=== PATIENT | male | born 1990 | race Caucasian/White ===

== ENCOUNTER 2021-10-23 09:25 | Emergency (ER) | payer MEDICAID, OTHER ==
[~2021-10-23] VITALS: Ht 193 cm; Wt 68.0 kg
[2021-10-23 09:55] LABS: BASOPHILS % (AUTO) 1 % (0-10); EOSINOPHILS % (AUTO) 1 % (0-10); HEMATOCRIT 42 % (40-54); HEMOGLOBIN 14.7 g/dL (13.3-17.7); LYMPHOCYTES # (AUTO) 2.1 10^3/uL (1.0-4.0); LYMPHOCYTES % (AUTO) 38 % (12-44); MEAN CORPUSCULAR HEMOGLOBIN 33 pg (25-34); MEAN CORPUSCULAR HGB CONC 35 g/dL (32-36); MEAN CORPUSCULAR VOLUME 94 fL (80-99); MONOCYTES # (AUTO) 0.7 10^3/uL (0.0-1.0); MONOCYTES % (AUTO) 13 % (0-12); NEUTROPHILS # (AUTO) 2.7 10^3/uL (1.8-7.8); NEUTROPHILS % (AUTO) 48 % (42-75); PLATELET COUNT 190 10^3/uL (130-400); WHITE BLOOD COUNT 5.6 10^3/uL (4.3-11.0)
[2021-10-23 09:59] LABS: ALBUMIN 4.5 GM/DL (3.2-4.5)
[2021-10-23 10:00] LABS: POTASSIUM 4.2 MMOL/L (3.6-5.0)
[2021-10-23] MEDS ORDERED: LACTATED RINGERS 1,000 ML IV ONE (10:00)
[2021-10-23] MEDS ORDERED: ONDANSETRON 4 MG/2 ML (SDV) Z0FRAN IVP ONE (10:00)
[2021-10-23] MEDS ORDERED: fentaNYL INJ 100 MCG/2 ML AMP IVP ONE (10:00)
[2021-10-23 10:01] LABS: CALCIUM 9.3 MG/DL (8.5-10.1)
[2021-10-23 10:02] LABS: TOTAL PROTEIN 7.2 GM/DL (6.4-8.2)
[2021-10-23 10:04] LABS: BILIRUBIN,TOTAL 0.6 MG/DL (0.1-1.0)
[2021-10-23 10:05] LABS: CREATININE SERUM 1.11 MG/DL (0.60-1.30)
[2021-10-23] MEDS ORDERED: KETOROLAC 30 MG/ML VIAL IVP ONE (10:45)
[2021-10-23 11:27] LABS: BILIRUBIN,URINE NEGATIVE (NEGATIVE); CLARITY,URINE CLEAR; COLOR,URINE YELLOW; GLUCOSE, URINE (UA) NEGATIVE (NEGATIVE); KETONES,URINE NEGATIVE (NEGATIVE); LEUKOCYTE ESTERASE ,URINE NEGATIVE (NEGATIVE); NITRITE,URINE NEGATIVE (NEGATIVE); PROTEIN,URINE TRACE (NEGATIVE)
--- NOTE | 2021-10-23 11:31 | Diagnostic Imaging Report ---
PROCEDURE: CT urinary tract, rule out kidney stone. TECHNIQUE: Multiple contiguous axial images were obtained through the abdomen and pelvis without the use of intravenous contrast. Auto Exposure Controls were utilized during the CT exam to meet ALARA standards for radiation dose reduction. INDICATION: Flank pain. FINDINGS: The heart size is normal. The lung bases are clear. The liver is normal in size without focal lesions. Gallbladder is contracted. There is no biliary ductal dilatation. Spleen is normal. Pancreas and adrenal glands are unremarkable. There are couple questionable punctate stones in the right kidney. Aorta is nonaneurysmal. Bowel gas pattern is nonspecific. Bladder is normal. There is no pelvic mass, adenopathy or free fluid. The osseous structures are unremarkable. IMPRESSION: Questionable punctate nonobstructing right renal stones however no evidence of overt hydronephrosis or obstructive uropathy. Otherwise unremarkable noncontrast CT abdomen and pelvis. Dictated by: Dictated on workstation # [id number]
[2021-10-23 11:40] LABS: BACTERIA,URINE TRACE /HPF; WBC,URINE 0-2 /HPF
--- NOTE | 2021-10-23 12:48 | ED Abdominal Pain ---
General Chief Complaint: Abdominal/GI Problems Stated Complaint: ABD PAIN Nursing Triage Note: PT REPORTS TO ED POV FOR ABD. PAIN THAT STARTED AROUND 0900 THIS MORNING. DENIES INJURY. PT IS GUARDING ABD., PT BROUGHT TO ROOM 02 VIA WC. PT REPORTS NAUSEA NO VOMITING. NORMAL BM YESTERDAY. DENIES URINARY C/O. PT IS ALERT AND ORIENTED X'S 4. Source of Information: Patient Exam Limitations: No Limitations History of Present Illness Date Seen by Provider: Oct 23, 2021 Time Seen by Provider: 09:49 Allergies and Home Medications Allergies Coded Allergies: No Known Drug Allergies (Unverified , 10/23/21) Past Nlblbwd-Nukpnk-Cizyex Hx Patient Social History Tobacco Use?: Yes Tobacco type used: Cigarettes Smoking Status: Current Everyday Smoker Use of E-Cig and/or Vaping dev: No Substance use?: No Alcohol Use?: No Pt feels they are or have been: No Past Medical History Surgery/Hospitalization HX: PT DENIES PMH OR SURGERIES. Physical Exam Vital Signs Vital Signs - First Documented 10/23/21 09:30 Temp 36.4 Pulse 41 Resp 16 B/P (MAP) 135/109 (118) Pulse Ox 100 O2 Delivery Room Air Capillary Refill : Less Than 3 Seconds Height/Weight/BMI Height: '" Weight: lbs. oz. kg; 18.00 BMI Method: Progress/Results/Core Measures Results/Orders Lab Results Laboratory Tests Test 10/23/21 09:31 10/23/21 11:22 Range/Units White Blood Count 5.6 4.3-11.0 10^3/uL Red Blood Count 4.52 4.30-5.52 10^6/uL Hemoglobin 14.7 13.3-17.7 g/dL Hematocrit 42 40-54 % Mean Corpuscular Volume 94 80-99 fL Mean Corpuscular Hemoglobin 33 25-34 pg Mean Corpuscular Hemoglobin Concent 35 32-36 g/dL Red Cell Distribution Width 11.9 10.0-14.5 % Platelet Count 190 130-400 10^3/uL Mean Platelet Volume 11.0 9.0-12.2 fL Immature Granulocyte % (Auto) 0 % Neutrophils (%) (Auto) 48 42-75 % Lymphocytes (%) (Auto) 38 12-44 % Monocytes (%) (Auto) 13 H 0-12 % Eosinophils (%) (Auto) 1 0-10 % Basophils (%) (Auto) 1 0-10 % Neutrophils # (Auto) 2.7 1.8-7.8 10^3/uL Lymphocytes # (Auto) 2.1 1.0-4.0 10^3/uL Monocytes # (Auto) 0.7 0.0-1.0 10^3/uL Eosinophils # (Auto) 0.0 0.0-0.3 10^3/uL Basophils # (Auto) 0.0 0.0-0.1 10^3/uL Immature Granulocyte # (Auto) 0.0 0.0-0.1 10^3/uL Sodium Level 140 135-145 MMOL/L Potassium Level 4.2 3.6-5.0 MMOL/L Chloride Level 105 98-107 MMOL/L Carbon Dioxide Level 23 21-32 MMOL/L Anion Gap 12 5-14 MMOL/L Blood Urea Nitrogen 14 7-18 MG/DL Creatinine 1.11 0.60-1.30 MG/DL Estimat Glomerular Filtration Rate 91 BUN/Creatinine Ratio 13 Glucose Level 114 H 70-105 MG/DL Calcium Level 9.3 8.5-10.1 MG/DL Corrected Calcium 8.9 8.5-10.1 MG/DL Total Bilirubin 0.6 0.1-1.0 MG/DL Aspartate Amino Transf (AST/SGOT) 31 5-34 U/L Alanine Aminotransferase (ALT/SGPT) 26 0-55 U/L Alkaline Phosphatase 64 40-136 U/L Total Protein 7.2 6.4-8.2 GM/DL Albumin 4.5 3.2-4.5 GM/DL Lipase 21 8-78 U/L Urine Color YELLOW Urine Clarity CLEAR Urine pH 8.0 5-9 Urine Specific [place] 1.020 1.016-1.022 Urine Protein TRACE H NEGATIVE Urine Glucose (UA) NEGATIVE NEGATIVE Urine Ketones NEGATIVE NEGATIVE Urine Nitrite NEGATIVE NEGATIVE Urine Bilirubin NEGATIVE NEGATIVE Urine Urobilinogen 1.0 < = 1.0 MG/DL Urine Leukocyte Esterase NEGATIVE NEGATIVE Urine RBC (Auto) NEGATIVE NEGATIVE Urine RBC NONE /HPF Urine WBC 0-2 /HPF Urine Crystals NONE /LPF Urine Bacteria TRACE /HPF Urine Casts NONE /LPF Urine Mucus NEGATIVE /LPF Urine Culture Indicated NO My Orders Orders - CARLOS ALBERTO GARY MD Cbc With Automated Diff (10/23/21 09:49) Comprehensive Metabolic Panel (10/23/21 09:49) Lipase (10/23/21 09:49) Ua Culture If Indicated (10/23/21 09:49) Ed Iv/Invasive Line Start (10/23/21 09:49) Ondansetron Injection (Zofran Injectio (10/23/21 10:00) Fentanyl Inj (Sublimaze Injection) (10/23/21 10:00) Lactated Ringers (Lr 1000 Ml Iv Solution (10/23/21 10:00) Ketorolac Injection (Toradol Injection) (10/23/21 10:45) Ct Abd/Pelvis Wo(Kidney Stone) (10/23/21 10:56) Medications Given in ED Current Medications Medications Dose Ordered Sig/Los Route Start Time Stop Time Status Last Admin Dose Admin Fentanyl Citrate 50 mcg ONCE ONCE IVP 10/23/21 10:00 10/23/21 10:01 DC 10/23/21 09:55 50 MCG Ketorolac Tromethamine 30 mg ONCE ONCE IVP 10/23/21 10:45 10/23/21 10:46 DC 10/23/21 10:39 30 MG Lactated Ringer's 1,000 ml @ 0 mls/hr Q0M ONCE IV 10/23/21 10:00 10/23/21 10:01 DC 10/23/21 10:04 1,000 MLS/HR Ondansetron HCl 8 mg ONCE ONCE IVP 10/23/21 10:00 10/23/21 10:01 DC 10/23/21 09:53 8 MG Vital Signs/I&O 10/23/21 09:30 Temp 36.4 Pulse 41 Resp 16 B/P (MAP) 135/109 (118) Pulse Ox 100 O2 Delivery Room Air Blood Pressure Mean: 118 Progress Progress Note : Time: 12:43 Progress Note Patient has now had relief of symptoms. CT was unremarkable. There were some questionable punctate calcifications in the right kidney that were nonobstructing. It is possible that he passed a very tiny ureteral stone rapidly. Ultimately, the exact cause of his pain is uncertain. Diagnostic Imaging Diagonstic Imaging: CT Plain Films/CT/US/NM/MRI: abdomen, pelvis Comments NAME: LINDSAY CHEUNGPRESLEY Paul MED REC#: [id number] PT STATUS: REG ER : 1990 PHYSICIAN: CARLOS ALBERTO GARY MD ADMIT DATE: 10/23/21/ER Signed Date of Exam:10/23/21 CT ABD/PELVIS WO(KIDNEY STONE) PROCEDURE: CT urinary tract, rule out kidney stone. TECHNIQUE: Multiple contiguous axial images were obtained through the abdomen and pelvis without the use of intravenous contrast. Auto Exposure Controls were utilized during the CT exam to meet ALARA standards for radiation dose reduction. INDICATION: Flank pain. FINDINGS: The heart size is normal. The lung bases are clear. The liver is normal in size without focal lesions. Gallbladder is contracted. There is no biliary ductal dilatation. Spleen is normal. Pancreas and adrenal glands are unremarkable. There are couple questionable punctate stones in the right kidney. Aorta is nonaneurysmal. Bowel gas pattern is nonspecific. Bladder is normal. There is no pelvic mass, adenopathy or free fluid. The osseous structures are unremarkable. IMPRESSION: Questionable punctate nonobstructing right renal stones however no evidence of overt hydronephrosis or obstructive uropathy. Otherwise unremarkable noncontrast CT abdomen and pelvis. Dictated by: Dictated on workstation # [id number] Dict: 10/23/21 1114 Trans: 10/23/21 1154 [facility] [id number] Interpreted by: ALICIA WALTERS MD Electronically signed by: ALICIA WALTERS MD 10/23/21 1154 Departure Impression Primary Impression: Left sided abdominal pain of unknown cause Additional Impression: Nausea Disposition: 01 HOME, SELF-CARE Condition: Improved Departure-Patient Inst. Decision time for Depature: 12:44 Patient Instructions: Abdominal Pain, Adult ED, Kidney Stone, Adult ED Add. Discharge Instructions: Drink plenty of clear liquids. Start with a noncarbonated clear liquid diet today and gradually advance your diet with small quantities of bland food as to lerated. You may take ibuprofen up to 600 mg every 6 hours and/or Tylenol (acetaminophen) up to 1000 mg every 6 hours as needed for pain control. Return to the emergency room if you have worsening symptoms despite following these instructions. Follow-up with your primary care provider if you have return of nausea, pain, or other symptoms. All discharge instructions reviewed with patient and/or family. Voiced understanding. CARLOS ALBERTO GARY MD Oct 23, 2021 12:47
[2021-10-23 13:07] VITALS: BP 109/64
== END 2021-10-23 13:09 | disposition home or self-care (01) ==
LOC: ER 09:36
DX: R10.9 Unspecified abdominal pain (principal); R11.0 Nausea; F17.210 Nicotine dependence, cigarettes, uncomplicated; Z28.310 Unvaccinated for COVID-19
CPT/HCPCS: 36415; 74176; 80053; 81000; 83690; 85025

== ENCOUNTER 2021-10-26 03:16 | Emergency (ER) | payer MEDICAID ==
[~2021-10-26] VITALS: Ht 180 cm; Wt 81.0 kg
[2021-10-26] MEDS ORDERED: ONDANSETRON 4 MG/2 ML (SDV) Z0FRAN IVP ONE (03:45)
[2021-10-26] MEDS ORDERED: LACTATED RINGERS 1,000 ML IV ONE (03:45)
[2021-10-26 03:47] LABS: BASOPHILS % (AUTO) 0 % (0-10); EOSINOPHILS % (AUTO) 0 % (0-10); HEMATOCRIT 39 % (40-54); HEMOGLOBIN 13.6 g/dL (13.3-17.7); LYMPHOCYTES # (AUTO) 1.5 10^3/uL (1.0-4.0); LYMPHOCYTES % (AUTO) 15 % (12-44); MEAN CORPUSCULAR HEMOGLOBIN 33 pg (25-34); MEAN CORPUSCULAR HGB CONC 35 g/dL (32-36); MEAN CORPUSCULAR VOLUME 94 fL (80-99); MONOCYTES % (AUTO) 10 % (0-12); NEUTROPHILS # (AUTO) 7.8 10^3/uL (1.8-7.8); NEUTROPHILS % (AUTO) 75 % (42-75); PLATELET COUNT 209 10^3/uL (130-400); WHITE BLOOD COUNT 10.3 10^3/uL (4.3-11.0)
--- NOTE | 2021-10-26 03:53 | ED GI ---
General Stated Complaint: VOMITING,LOWER LEFT SIDE PX,COVID+ 2 DAYS AGO Source of Information: Patient History of Present Illness Date Seen by Provider: Oct 26, 2021 Time Seen by Provider: 03:35 Initial Comments PT ARRIVES VIA POV FROM HOME STATES HE STARTED HAVING LLQ PAIN AND NAUSEA SINCE Monday10/23/21 HE DID A HOME COVID TEST THAT WAS POSITIVE ON Monday10/23/21 NO DIARRHEA, NO BM SINCE MONDAY. THAT BM WAS NORMAL NO VOMITING HAS HAD DECREASED URINE OUTPUT NO FEVER NO COUGH/URI SYMPTOMS/SORE THROAT NO HEADACHE NO BODY ACHES PT WAS SEEN HERE ON Monday10/23/21 FOR THIS PROBLEM AND HAD LAB AND CT SCAN WHICH WERE UNREMARKABLE, BUT POSSIBLY HAD PUNCTATE CALCIFICATIONS AND THOUGHT HE MIGHT HAVE A SMALL KIDNEY STONE NO RX'S WERE GIVEN PT WENT TO [facility] YESTER10/25/21 FOR THIS SAME PROBLEM AND DID NOT HAVE ANY TESTS DONE, BUT WAS TOLD HE HAD DIVERTICULITIS, AND WAS GIVEN RX FOR CIPRO AND NABUMETONE, AND TOLD TO TAKE TYLENOL AND IBUPROFEN PT STATES PAIN IS GETTING WORSE NO HISTORY OF SIMILAR NO PRIOR SURGERIES OF ANY KIND NO PAST MEDICAL PROBLEMS OF ANY KIND PT IS NOT COVID VACCINATED PCP: [facility] Allergies and Home Medications Allergies Coded Allergies: No Known Drug Allergies (Unverified , 10/23/21) Patient Home Medication List Home Medication List Reviewed: Yes Review of Systems Review of Systems Constitutional: no symptoms reported EENTM: No Symptoms Reported Respiratory: No Symptoms Reported Cardiovascular: No Symptoms Reported Gastrointestinal: See HPI, Abdominal Pain, Nausea, Poor Appetite, Vomiting Genitourinary: See HPI; Denies Burning, Denies Flank Pain Musculoskeletal: no symptoms reported; No back pain Skin: no symptoms reported Psychiatric/Neurological: No Symptoms Reported Endocrine: No Symptoms Reported Hematologic/Lymphatic: No Symptoms Reported Past Qvwlfoq-Hwkvxp-Hgdvca Hx Patient Social History Tobacco Use?: Yes (1 PPD) Tobacco type used: Cigarettes Smoking Status: Current Everyday Smoker Substance use?: Yes Substance type: Marijuana Additional substance use comme: UDS + FOR THC 10/26/21 Alcohol Use?: No Past Medical History Surgery/Hospitalization HX: PT DENIES PMH OR SURGERIES. Surgeries: No Respiratory: No Cardiac: No Neurological: No Genitourinary: No Gastrointestinal: No Musculoskeletal: No Endocrine: No HEENT: No Cancer: No Psychosocial: No Integumentary: No Blood Disorders: No Physical Exam Vital Signs Vital Signs - First Documented 10/26/21 03:37 Temp 36.4 Pulse 47 Resp 20 B/P (MAP) 143/93 (110) Pulse Ox 98 O2 Delivery Room Air Capillary Refill : Height/Weight/BMI Height: '" Weight: lbs. oz. kg; 18.00 BMI Method: General Appearance: WD/WN, thin, other (VERY DRAMATIC, WAILING LOUDLY, MOANING, THRASHING ALL AROUND, HOLDING LLQ) HEENT: PERRL/EOMI Neck: normal inspection Respiratory: normal breath sounds, no respiratory distress, no accessory muscle use Cardiovascular: regular rate, rhythm, no murmur Gastrointestinal: normal bowel sounds, soft, no organomegaly, no pulsatile mass; No distended; guarding (LLQ); No rebound; tenderness (DIFFUSE LEFT SIDED TENDERNESS) Focused Exam Lactate Level 10/26/21 03:40: Lactic Acid Level 0.93 Lactic Acid Level Laboratory Tests Test 10/26/21 03:40 Lactic Acid Level 0.93 MMOL/L (0.50-2.00) Progress/Results/Core Measures Results/Orders Lab Results Laboratory Tests Test 10/26/21 03:37 10/26/21 03:40 10/26/21 04:27 Range/Units White Blood Count 10.3 4.3-11.0 10^3/uL Red Blood Count 4.14 L 4.30-5.52 10^6/uL Hemoglobin 13.6 13.3-17.7 g/dL Hematocrit 39 L 40-54 % Mean Corpuscular Volume 94 80-99 fL Mean Corpuscular Hemoglobin 33 25-34 pg Mean Corpuscular Hemoglobin Concent 35 32-36 g/dL Red Cell Distribution Width 11.8 10.0-14.5 % Platelet Count 209 130-400 10^3/uL Mean Platelet Volume 11.0 9.0-12.2 fL Immature Granulocyte % (Auto) 1 % Neutrophils (%) (Auto) 75 42-75 % Lymphocytes (%) (Auto) 15 12-44 % Monocytes (%) (Auto) 10 0-12 % Eosinophils (%) (Auto) 0 0-10 % Basophils (%) (Auto) 0 0-10 % Neutrophils # (Auto) 7.8 1.8-7.8 10^3/uL Lymphocytes # (Auto) 1.5 1.0-4.0 10^3/uL Monocytes # (Auto) 1.0 0.0-1.0 10^3/uL Eosinophils # (Auto) 0.0 0.0-0.3 10^3/uL Basophils # (Auto) 0.0 0.0-0.1 10^3/uL Immature Granulocyte # (Auto) 0.1 0.0-0.1 10^3/uL Prothrombin Time 14.5 12.2-14.7 SEC INR Comment 1.1 0.8-1.4 Activated Partial Thromboplast Time 37 H 24-35 SEC Sodium Level 139 135-145 MMOL/L Potassium Level 4.2 3.6-5.0 MMOL/L Chloride Level 101 98-107 MMOL/L Carbon Dioxide Level 24 21-32 MMOL/L Anion Gap 14 5-14 MMOL/L Blood Urea Nitrogen 15 7-18 MG/DL Creatinine 1.75 H 0.60-1.30 MG/DL Estimat Glomerular Filtration Rate 52 BUN/Creatinine Ratio 9 Glucose Level 114 H 70-105 MG/DL Calcium Level 9.4 8.5-10.1 MG/DL Corrected Calcium 9.2 8.5-10.1 MG/DL Magnesium Level 1.8 1.6-2.4 MG/DL Total Bilirubin 0.9 0.1-1.0 MG/DL Aspartate Amino Transf (AST/SGOT) 63 H 5-34 U/L Alanine Aminotransferase (ALT/SGPT) 79 H 0-55 U/L Alkaline Phosphatase 54 40-136 U/L Total Protein 7.1 6.4-8.2 GM/DL Albumin 4.3 3.2-4.5 GM/DL Amylase Level 27 25-125 U/L Lipase 8 8-78 U/L Influenza Type A (RT-PCR) Not Detected Not Detecte Influenza Type B (RT-PCR) Not Detected Not Detecte SARS-CoV-2 RNA (RT-PCR) Detected H Not Detecte Lactic Acid Level 0.93 0.50-2.00 MMOL/L Urine Color YELLOW Urine Clarity CLEAR Urine pH 6.0 5-9 Urine Specific [place] 1.025 H 1.016-1.022 Urine Protein 1+ H NEGATIVE Urine Glucose (UA) NEGATIVE NEGATIVE Urine Ketones NEGATIVE NEGATIVE Urine Nitrite NEGATIVE NEGATIVE Urine Bilirubin NEGATIVE NEGATIVE Urine Urobilinogen 1.0 < = 1.0 MG/DL Urine Leukocyte Esterase NEGATIVE NEGATIVE Urine RBC (Auto) NEGATIVE NEGATIVE Urine RBC NONE /HPF Urine WBC 0-2 /HPF Urine Crystals NONE /LPF Urine Bacteria TRACE /HPF Urine Casts NONE /LPF Urine Mucus NEGATIVE /LPF Urine Culture Indicated CULTURE PENDING Urine Opiates Screen NEGATIVE NEGATIVE Urine Oxycodone Screen NEGATIVE NEGATIVE Urine Methadone Screen NEGATIVE NEGATIVE Urine Propoxyphene Screen NEGATIVE NEGATIVE Urine Barbiturates Screen NEGATIVE NEGATIVE Ur Tricyclic Antidepressants Screen NEGATIVE NEGATIVE Urine Phencyclidine Screen NEGATIVE NEGATIVE Urine Amphetamines Screen NEGATIVE NEGATIVE Urine Methamphetamines Screen NEGATIVE NEGATIVE Urine Benzodiazepines Screen NEGATIVE NEGATIVE Urine Cocaine Screen NEGATIVE NEGATIVE Urine Cannabinoids Screen POSITIVE H NEGATIVE My Orders Orders - JON CLINE DO Ed Iv/Invasive Line Start (10/26/21 03:34) Monitor-Rhythm Ecg Trace Only (10/26/21 03:34) Amylase (10/26/21 03:34) Cbc With Automated Diff (10/26/21 03:34) Comprehensive Metabolic Panel (10/26/21 03:34) Drug Screen Stat (Urine) (10/26/21 03:34) Lipase (10/26/21 03:34) Magnesium (10/26/21 03:34) Ua Culture If Indicated (10/26/21 03:34) Chest 1 View, Ap/Pa Only (10/26/21 03:34) Ed Iv/Invasive Line Start (10/26/21 03:34) Lactated Ringers (Lr 1000 Ml Iv Solution (10/26/21 03:45) Ondansetron Injection (Zofran Injectio (10/26/21 03:45) Covid 19 Inhouse Test (10/26/21 03:34) Blood Culture (10/26/21 03:34) Sputum Culture (10/26/21 03:34) Urine Culture (10/26/21 03:34) Protime With Inr (10/26/21 03:34) Partial Thromboplastin Time (10/26/21 03:34) Ed Iv/Invasive Line Start (10/26/21 03:34) Ed Iv/Invasive Line Start (10/26/21 03:34) Vital Signs Adult Sepsis Patie Q15M (10/26/21 03:34) O2 (10/26/21 03:34) Remove Rings In Anticipation O (10/26/21 03:34) Lactic Acid Analyzer (10/26/21 03:34) Influenza A And B By Pcr (10/26/21 03:34) Isolation Central Supply Req (10/26/21 03:34) Ct Abd/Pelvis Wo(Kidney Stone) (10/26/21 03:34) Ketorolac Injection (Toradol Injection) (10/26/21 04:30) Medications Given in ED Current Medications Medications Dose Ordered Sig/Los Route Start Time Stop Time Status Last Admin Dose Admin Ketorolac Tromethamine 30 mg ONCE ONCE IVP 10/26/21 04:30 10/26/21 04:31 DC 10/26/21 04:37 30 MG Lactated Ringer's 1,000 ml @ 0 mls/hr Q0M ONCE IV 10/26/21 03:45 10/26/21 03:46 DC 10/26/21 04:06 0 MLS/HR Ondansetron HCl 4 mg ONCE ONCE IVP 10/26/21 03:45 10/26/21 03:46 DC 10/26/21 04:06 4 MG Vital Signs/I&O 10/26/21 03:37 Temp 36.4 Pulse 47 Resp 20 B/P (MAP) 143/93 (110) Pulse Ox 98 O2 Delivery Room Air Progress Progress Note : Progress Note GIVEN IV FLUIDS, ZOFRAN, AND TORADOL PT SPECIFICALLY REQUESTING FENTANYL SHORTLY AFTER ARRIVAL, THIS REQUEST WAS DECLINED, NO ACUTE PROCESS FOUND ON TESTS. NO VOMITING DURING ER STAY PT IS NO LONGER THRASHING AND MOANING/WAILING AND PT SLEPT FOR MOST OF REMAINDER OF ER STAY NO DETERIORATION IN PT'S CONDITION DURING ER STAY PT DOES NOT MEET ANY CRITERIA FOR COVID TREATMENT AT THIS TIME. Diagnostic Imaging Comments CXR--PER RADIOLOGIST REPORT AT 0612 FINDINGS: Lungs/pleura: Lungs are clear. There is no pneumothorax. There is no pleural effusion. Mediastinum: Unremarkable. Pulmonary vasculature: Unremarkable. Heart: Unremarkable. Bones/extrathoracic soft tissue: Unremarkable. IMPRESSION: There is no radiographic evidence of acute cardiopulmonary process. CT ABDOMEN/PELVIS--PER [facility] VIA FAX AT 0643 -CONSTIPATION -NO ACUTE PROCESS Reviewed: Reviewed by Me Departure Impression Primary Impression: Left sided abdominal pain of unknown cause Additional Impressions: Nausea COVID-19 virus infection Marijuana use Constipation Disposition: HOME, SELF-CARE Condition: Stable Departure-Patient Inst. Decision time for Depature: 06:44 Referrals: NO,LOCAL PHYSICIAN (PCP) Primary Care Physician [facility] Patient Instructions: Abdominal Pain, Adult ED, COVID-19 ED, Nausea and Vomiting, Adult (DC), Preventing the Spread of an Infectious Disease, Constipation, Adult (DC) Add. Discharge Instructions: CLEAR LIQUIDS--WATER, BROTH, JELLO, GATORADE TOMORROW IF YOU ARE BETTER, ADD BRATS DIET TO CLEAR LIQUIDS--BANANAS, RICE, APPLESAUCE, TOAST, SALTINES TAKE MIRALAX DAILY--YOU MAY START BY TAKING IT EVERY 1-2 HOURS UNTIL YOU HAVE A BM, THEN USE ONCE DAILY TYLENOL NEEDED FOR PAIN CONTINUE ZOFRAN NEEDED FOR NAUSEA QUARANTINE FOR 10 DAYS FOLLOW UP WITH [facility] IF SYMPTOMS PERSIST JON CLINE DO Oct 26, 2021 03:53
[2021-10-26 03:58] LABS: ALBUMIN 4.3 GM/DL (3.2-4.5); POTASSIUM 4.2 MMOL/L (3.6-5.0)
[2021-10-26 03:59] LABS: INR 1.1 (0.8-1.4); PROTHROMBIN TIME PATIENT 14.5 SEC (12.2-14.7)
[2021-10-26 04:00] LABS: CALCIUM 9.4 MG/DL (8.5-10.1)
[2021-10-26 04:01] LABS: TOTAL PROTEIN 7.1 GM/DL (6.4-8.2)
[2021-10-26 04:03] LABS: BILIRUBIN,TOTAL 0.9 MG/DL (0.1-1.0)
[2021-10-26 04:04] LABS: CREATININE SERUM 1.75 MG/DL (0.60-1.30)
[2021-10-26 04:07] LABS: MAGNESIUM 1.8 MG/DL (1.6-2.4)
[2021-10-26] MEDS ORDERED: KETOROLAC 30 MG/ML VIAL IVP ONE (04:30)
[2021-10-26 04:45] LABS: BILIRUBIN,URINE NEGATIVE (NEGATIVE); CLARITY,URINE CLEAR; COLOR,URINE YELLOW; GLUCOSE, URINE (UA) NEGATIVE (NEGATIVE); KETONES,URINE NEGATIVE (NEGATIVE); NITRITE,URINE NEGATIVE (NEGATIVE); PROTEIN,URINE 1+ (NEGATIVE)
[2021-10-26 04:46] LABS: BACTERIA,URINE TRACE /HPF; LEUKOCYTE ESTERASE ,URINE NEGATIVE (NEGATIVE); WBC,URINE 0-2 /HPF
[2021-10-26 04:47] LABS: AMPHETAMINE SCREEN, URINE NEGATIVE (NEGATIVE); BARBITURATE SCREEN URINE NEGATIVE (NEGATIVE); BENZODIAZEPINES SCREEN URINE NEGATIVE (NEGATIVE); CANNABINOID SCREEN, URINE POSITIVE (NEGATIVE); COCAINE SCREEN URINE NEGATIVE (NEGATIVE); METHADONE STAT NEGATIVE (NEGATIVE); OPIATE SCREEN URINE NEGATIVE (NEGATIVE); OXYCODONE STAT NEGATIVE (NEGATIVE); PROPOXYPHENE STAT NEGATIVE (NEGATIVE); TRICYCLIC ANTIDEPRESSANTS SCRE NEGATIVE (NEGATIVE)
--- NOTE | 2021-10-26 06:07 | Diagnostic Imaging Report ---
CLINICAL INDICATION: Patient Covid positive and complains of flank pain with nausea. EXAM: Portable chest x-ray upright view. COMPARISON: None. FINDINGS: Lungs/pleura: Lungs are clear. There is no pneumothorax. There is no pleural effusion. Mediastinum: Unremarkable. Pulmonary vasculature: Unremarkable. Heart: Unremarkable. Bones/extrathoracic soft tissue: Unremarkable. IMPRESSION: There is no radiographic evidence of acute cardiopulmonary process. Dictated by: Dictated on workstation # [id number]
[2021-10-26 06:52] VITALS: BP 143/93
--- NOTE | 2021-10-26 08:04 | Diagnostic Imaging Report ---
PROCEDURE: CT urinary tract, rule out kidney stone. TECHNIQUE: Multiple contiguous axial images were obtained through the abdomen and pelvis without the use of intravenous contrast. Auto Exposure Controls were utilized during the CT exam to meet ALARA standards for radiation dose reduction. DATE: October 26, 2021. COMPARISON: CT abdomen pelvis October 23, 2021. INDICATION: 31-year-old male, flank pain and nausea. FINDINGS: There are limitations for evaluation of the abdominal organs, neoplastic processes, abscess, and limited evaluation of the vasculature relating to the lack of intravenous contrast. The visualized portions of the lung bases are clear. The heart is not enlarged. There is no pericardial effusion. The liver is unremarkable in size and contour. The gallbladder is grossly unremarkable. There is no biliary ductal dilation. Limited noncontrast assessment of the pancreatic parenchyma is unremarkable. The spleen is normal in size. The adrenal glands are unremarkable. Limited noncontrast assessment of the renal parenchyma is unremarkable. The urinary collecting systems are not distended. There is no identified renal or ureteral stone. Urinary bladder is grossly unremarkable in appearance. The intestinal tract is not distended. There is no evidence to suggest acute appendicitis. There is no free intraperitoneal air. There is no drainable fluid collection. There is no free fluid in the abdomen or pelvis. There is a very small fat-containing umbilical hernia. There is no identified acute bony abnormality. IMPRESSION: CT ABDOMEN AND PELVIS. 1. No identified acute abnormality in the abdomen or pelvis. Dictated by: Dictated on workstation # [id number]
== END 2021-10-26 06:53 | disposition home or self-care (01) ==
LOC: EDUNIT# 03:16 → ER 03:20
DX: U07.1 COVID-19 (principal); F12.90 Cannabis use, unspecified, uncomplicated; K59.00 Constipation, unspecified; F17.210 Nicotine dependence, cigarettes, uncomplicated; Z28.310 Unvaccinated for COVID-19
CPT/HCPCS: 36415; 71045; 74176; 80053; 80306; 81000; 82150; 83605; 83690; 83735; 85025; 85610; 85730; 87040; 87088; 87636

== ENCOUNTER 2021-12-05 23:08 | Emergency (ER) | payer MEDICAID ==
[2021-12-05] MEDS ORDERED: ASPIRIN 81 MG CHEW (CHILDREN'S ASA) PO ONE (23:15)
[2021-12-05 23:25] LABS: BASOPHILS # (AUTO) 0.1 10^3/uL (0.0-0.1); BASOPHILS % (AUTO) 1 % (0-10); EOSINOPHILS # (AUTO) 0.2 10^3/uL (0.0-0.3); EOSINOPHILS % (AUTO) 1 % (0-10); HEMATOCRIT 38 % (40-54); HEMOGLOBIN 12.7 g/dL (13.3-17.7); LYMPHOCYTES # (AUTO) 3.9 10^3/uL (1.0-4.0); LYMPHOCYTES % (AUTO) 26 % (12-44); MEAN CORPUSCULAR HEMOGLOBIN 32 pg (25-34); MEAN CORPUSCULAR HGB CONC 33 g/dL (32-36); MEAN CORPUSCULAR VOLUME 96 fL (80-99); MEAN PLATELET VOLUME 10.1 fL (9.0-12.2); MONOCYTES % (AUTO) 7 % (0-12); NEUTROPHILS % (AUTO) 65 % (42-75); PLATELET COUNT 331 10^3/uL (130-400); WHITE BLOOD COUNT 15.2 10^3/uL (4.3-11.0)
[2021-12-05] MEDS ORDERED: KETOROLAC 30 MG/ML VIAL IVP ONE (23:30)
[2021-12-05 23:39] LABS: ALBUMIN 4.5 GM/DL (3.2-4.5); PROTHROMBIN TIME PATIENT 13.9 SEC (12.2-14.7)
[2021-12-05 23:40] LABS: CHLORIDE 104 MMOL/L (98-107); POTASSIUM 3.5 MMOL/L (3.6-5.0); SODIUM 143 MMOL/L (135-145)
[2021-12-05 23:41] LABS: AMYLASE 57 U/L (25-125); CALCIUM 9.2 MG/DL (8.5-10.1)
[2021-12-05 23:42] LABS: GLUCOSE 132 MG/DL (70-105); TOTAL PROTEIN 7.4 GM/DL (6.4-8.2)
[2021-12-05 23:43] LABS: CARBON DIOXIDE 26 MMOL/L (21-32)
[2021-12-05 23:44] LABS: BILIRUBIN,TOTAL 0.4 MG/DL (0.1-1.0)
[2021-12-05 23:45] LABS: ALKALINE PHOSPHATASE 70 U/L (40-136); BAND NEUTROPHILS 3 %; EOSINOPHILS % (MANUAL) 2 %; LYMPHOCYTES % (MANUAL) 28 %; MONOCYTES % (MANUAL) 7 %; NEUTROPHILS % (MANUAL) 60 %; PLATELET ESTIMATE NORMAL; RBC MORPH NORMAL
[2021-12-05 23:46] LABS: CREATININE SERUM 1.49 MG/DL (0.60-1.30); GFR ESTIMATED 64
[2021-12-05 23:47] LABS: BUN/CREATININE RATIO 10
[2021-12-05 23:48] LABS: MAGNESIUM 1.9 MG/DL (1.6-2.4)
[2021-12-05 23:49] LABS: ALANINE AMINOTRANSFERASE 12 U/L (0-55); LIPASE 25 U/L (8-78)
[2021-12-05 23:50] LABS: CREATINE KINASE 180 U/L (30-200)
[2021-12-05 23:57] LABS: BILIRUBIN,URINE NEGATIVE (NEGATIVE); CLARITY,URINE CLEAR; COLOR,URINE YELLOW; GLUCOSE, URINE (UA) NEGATIVE (NEGATIVE); KETONES,URINE NEGATIVE (NEGATIVE); LEUKOCYTE ESTERASE ,URINE NEGATIVE (NEGATIVE); NITRITE,URINE NEGATIVE (NEGATIVE); PH,URINE 6.5 (5-9); PROTEIN,URINE TRACE (NEGATIVE)
[2021-12-06 00:04] LABS: BACTERIA,URINE TRACE /HPF; WBC,URINE 0-2 /HPF
--- NOTE | 2021-12-06 00:07 | ED Chest Pain ---
General Chief Complaint: Chest Pain Stated Complaint: CP Nursing Triage Note: TO ED VIA POV AND AMBULATORY TO ROOM 3 WAILING AND STATING HE HAS "CHEST PAIN" THROUGHOUT ENTIRE CHEST TO BACK. 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 HE TOOK ROLAIDS WITHOUT RELIEF. Source: patient History of Present Illness Date Seen by Provider: Dec 05, 2021 Time Seen by Provider: 23:13 Initial Comments PT ARRIVES VIA POV FROM HOME C/O CHEST PAIN SINCE 1729 TONIGHT PAIN BEGAN WHILE HE WAS DRIVING PAIN IS ALL OVER HIS CHEST AND RADIATES INTO HIS BACK, RATES PAIN "9 1/2" FEELS SHORT OF BREATH AND IT HURTS TO BREATHE ALSO HURTS TO MOVE + NAUSEA, NO VOMITING NO ABDOMINAL PAIN NO SWELLING IN LEGS/FEET OR PAIN IN CALVES ATE TACO B[place] AT 1830 NO RELIEF WITH ROLAIDS HAS NOT TAKEN ANYTHING ELSE FOR PAIN NO HISTORY OF SIMILAR PT WAS HERE TWICE IN THE LAST MONTH FOR ABDOMINAL PAIN PT ALSO TESTED + FOR COVID-19 ON 10/26/21--NO TREATMENT PT STATES THOSE SYMPTOMS HAVE RESOLVED. PCP: LARS Allergies and Home Medications Allergies Coded Allergies: No Known Drug Allergies (Unverified , 10/23/21) Patient Home Medication List Home Medication List Reviewed: Yes Review of Systems Review of Systems Constitutional: no symptoms reported EENTM: No Symptoms Reported Respiratory: See HPI Cardiovascular: See HPI Gastrointestinal: See HPI Genitourinary: No Symptoms Reported Musculoskeletal: see HPI Skin: no symptoms reported Psychiatric/Neurological: See HPI, Anxiety Endocrine: No Symptoms Reported Hematologic/Lymphatic: No Symptoms Reported Past Zlphskd-Cxlcxr-Kbkfxl Hx Patient Social History Tobacco Use?: Yes Tobacco type used: Cigarettes Smoking Status: Current Everyday Smoker Use of E-Cig and/or Vaping dev: Yes E-Cig or Vaping type used: Nicotine Use of E-Cig and/or Vaping Meir: Current Everyday User Substance use?: Yes Substance type: Methamphetamine, Marijuana Additional substance use comme: PAST METH Substance frequency: Daily Alcohol Use?: No Pt feels they are or have been: No Past Medical History Surgery/Hospitalization HX: PT DENIES PMH OR SURGERIES. Surgeries: No Respiratory: No Cardiac: No Neurological: No Genitourinary: No Gastrointestinal: No Musculoskeletal: No Endocrine: No HEENT: No Cancer: No Psychosocial: No Integumentary: No Blood Disorders: No Family Medical History COVID + 10/26/21--NO TREATMENT Physical Exam Vital Signs Vital Signs - First Documented 12/05/21 23:13 Temp 36.2 Pulse 56 Resp 20 B/P (MAP) 125/71 (89) Pulse Ox 100 O2 Delivery Room Air Capillary Refill : Less Than 3 Seconds Height, Weight, BMI Height: '" Weight: lbs. oz. kg; BMI Method: General Appearance: WD/WN, Thin, Other (EXTREMELY DRAMATIC--THRASHING ALL OVER, MOANING AND WAILING VERY LOUDLY, BENDING OVER AND PUTTING HIS HANDS ALL OVER HIS CHEST. CONSTANT MOVEMENTS OF ENTIRE BODY, SPEECH RAPID AND SOMEWHAT MUMBLED. ) HEENT: PERRL/EOMI Neck: Normal Inspection Respiratory: Normal Breath Sounds, No Accessory Muscle Use, No Respiratory Distress, Other (DIFFUSE ANTERIOR CHEST TENDERNESS--VERY EXAGGERATED PAIN RESPONSE) Cardiovascular: Regular Rate, Rhythm, No Murmur Gastrointestinal: Non Tender, Soft Extremity: Normal Inspection Neurologic/Psychiatric: Alert, Oriented x3, No Motor/Sensory Deficits, umbrella tipper machine II- XII Norm as Tested Skin: Normal Color, Warm/Dry; No Rash Progress/Results/Core Measures Results/Orders Lab Results Laboratory Tests Test 12/05/21 23:13 12/05/21 23:15 12/05/21 23:50 Range/Units B-Type Natriuretic Peptide 17.7 <100.0 PG/ML White Blood Count 15.2 H 4.3-11.0 10^3/uL Red Blood Count 3.98 L 4.30-5.52 10^6/uL Hemoglobin 12.7 L 13.3-17.7 g/dL Hematocrit 38 L 40-54 % Mean Corpuscular Volume 96 80-99 fL Mean Corpuscular Hemoglobin 32 25-34 pg Mean Corpuscular Hemoglobin Concent 33 32-36 g/dL Red Cell Distribution Width 12.3 10.0-14.5 % Platelet Count 331 130-400 10^3/uL Mean Platelet Volume 10.1 9.0-12.2 fL Immature Granulocyte % (Auto) 0 % Neutrophils (%) (Auto) 65 42-75 % Lymphocytes (%) (Auto) 26 12-44 % Monocytes (%) (Auto) 7 0-12 % Eosinophils (%) (Auto) 1 0-10 % Basophils (%) (Auto) 1 0-10 % Neutrophils # (Auto) 10.0 H 1.8-7.8 10^3/uL Lymphocytes # (Auto) 3.9 1.0-4.0 10^3/uL Monocytes # (Auto) 1.0 0.0-1.0 10^3/uL Eosinophils # (Auto) 0.2 0.0-0.3 10^3/uL Basophils # (Auto) 0.1 0.0-0.1 10^3/uL Immature Granulocyte # (Auto) 0.1 0.0-0.1 10^3/uL Neutrophils % (Manual) 60 % Lymphocytes % (Manual) 28 % Monocytes % (Manual) 7 % Eosinophils % (Manual) 2 % Band Neutrophils 3 % Platelet Estimate NORMAL Blood Morphology Comment NORMAL Prothrombin Time 13.9 12.2-14.7 SEC INR Comment 1.0 0.8-1.4 Activated Partial Thromboplast Time 30 24-35 SEC D-Dimer 8.67 H 0.00-0.49 UG/ML Sodium Level 143 135-145 MMOL/L Potassium Level 3.5 L 3.6-5.0 MMOL/L Chloride Level 104 98-107 MMOL/L Carbon Dioxide Level 26 21-32 MMOL/L Anion Gap 13 5-14 MMOL/L Blood Urea Nitrogen 15 7-18 MG/DL Creatinine 1.49 H 0.60-1.30 MG/DL Estimat Glomerular Filtration Rate 64 BUN/Creatinine Ratio 10 Glucose Level 132 H 70-105 MG/DL Calcium Level 9.2 8.5-10.1 MG/DL Corrected Calcium 8.8 8.5-10.1 MG/DL Magnesium Level 1.9 1.6-2.4 MG/DL Total Bilirubin 0.4 0.1-1.0 MG/DL Aspartate Amino Transf (AST/SGOT) 19 5-34 U/L Alanine Aminotransferase (ALT/SGPT) 12 0-55 U/L Alkaline Phosphatase 70 40-136 U/L Total Creatine Kinase 180 30-200 U/L Creatine Kinase MB 1.0 <6.6 NG/ML Myoglobin 42.7 10.0-92.0 NG/ML Troponin I < 0.028 <0.028 NG/ML Total Protein 7.4 6.4-8.2 GM/DL Albumin 4.5 3.2-4.5 GM/DL Amylase Level 57 25-125 U/L Lipase 25 8-78 U/L Serum Alcohol < 10 <10 MG/DL Urine Color YELLOW Urine Clarity CLEAR Urine pH 6.5 5-9 Urine Specific [place] 1.025 H 1.016-1.022 Urine Protein TRACE H NEGATIVE Urine Glucose (UA) NEGATIVE NEGATIVE Urine Ketones NEGATIVE NEGATIVE Urine Nitrite NEGATIVE NEGATIVE Urine Bilirubin NEGATIVE NEGATIVE Urine Urobilinogen 0.2 < = 1.0 MG/DL Urine Leukocyte Esterase NEGATIVE NEGATIVE Urine RBC (Auto) NEGATIVE NEGATIVE Urine RBC 2-5 H /HPF Urine WBC 0-2 /HPF Urine Squamous Epithelial Cells NONE /HPF Urine Crystals NONE /LPF Urine Bacteria TRACE /HPF Urine Casts NONE /LPF Urine Mucus NEGATIVE /LPF Urine Culture Indicated NO Urine Opiates Screen NEGATIVE NEGATIVE Urine Oxycodone Screen NEGATIVE NEGATIVE Urine Methadone Screen NEGATIVE NEGATIVE Urine Propoxyphene Screen NEGATIVE NEGATIVE Urine Barbiturates Screen NEGATIVE NEGATIVE Ur Tricyclic Antidepressants Screen NEGATIVE NEGATIVE Urine Phencyclidine Screen NEGATIVE NEGATIVE Urine Amphetamines Screen NEGATIVE NEGATIVE Urine Methamphetamines Screen NEGATIVE NEGATIVE Urine Benzodiazepines Screen NEGATIVE NEGATIVE Urine Cocaine Screen NEGATIVE NEGATIVE Urine Cannabinoids Screen POSITIVE H NEGATIVE My Orders Orders - JON CLINE DO Ekg Tracing (12/05/21 23:11) Alcohol (12/05/21 23:13) Amylase (12/05/21 23:13) Cbc With Automated Diff (12/05/21 23:13) Comprehensive Metabolic Panel (12/05/21 23:13) Creatine Kinase (12/05/21 23:13) Creatine Kinase Mb (12/05/21 23:13) Drug Screen Stat (Urine) (12/05/21 23:13) Lipase (12/05/21 23:13) Magnesium (12/05/21 23:13) Protime With Inr (12/05/21 23:13) Partial Thromboplastin Time (12/05/21 23:13) Ua Culture If Indicated (12/05/21 23:13) Myoglobin Serum (12/05/21 23:13) Troponin I [place] (12/05/21 23:13) Chest 1 View, Ap/Pa Only (12/05/21 23:13) O2 (12/05/21 23:13) Monitor-Rhythm Ecg Trace Only (12/05/21 23:13) Ed Iv/Invasive Line Start (12/05/21 23:13) Aspirin Chewable Tablet (Baby Aspirin Ch (12/05/21 23:15) Isolation Central Supply Req (12/05/21 23:13) Ketorolac Injection (Toradol Injection) (12/05/21 23:30) Manual Differential (12/05/21 23:15) Fibrin Degradation Products (12/05/21 23:57) Bnp Ciro (12/06/21 00:02) Medications Given in ED Current Medications Medications Dose Ordered Sig/Los Route Start Time Stop Time Status Last Admin Dose Admin Aspirin 324 mg ONCE ONCE PO 12/05/21 23:15 12/05/21 23:16 DC 12/05/21 23:20 324 MG Ketorolac Tromethamine 30 mg ONCE ONCE IVP 12/05/21 23:30 12/05/21 23:31 DC 12/05/21 23:26 30 MG Vital Signs/I&O 12/05/21 12/06/21 23:13 00:37 Temp 36.2 36.2 Pulse 56 48 Resp 20 16 B/P (MAP) 125/71 (89) 177/98 Pulse Ox 100 100 O2 Delivery Room Air Room Air Blood Pressure Mean: 89 Progress Progress Note : Progress Note GIVEN ASPIRIN AND TORADOL PT STATES NO RELIEF, AND STILL RATES PAIN "9 1/2", BUT PT IS NO LONGER WAILING AND MOANING PT WANTING "SOMETHING STRONG" FOR PAIN--ADVISED HIM WILL HOLD OFF ON ADDITIONAL PAIN MEDICATIONS TEST RESULTS ARE ALL PENDING, AND HAVE ORDERED CT SCAN OF HIS CHEST. 0037--PT WALKS OUT OF ROOM, HAS REMOVED HIS IV, STATES HE IS TIRED AND HE IS LEAVING. RISKS/BENEFITS DISCUSSED. AMA PAPERS SIGNED. Initial ECG Impression Date: Dec 05, 2021 Initial ECG Impression Time: 23:19 Initial ECG Rate: 44 Initial ECG Rhythm: S.Mark (IVCD) Initial ECG Impression: Nonspecific Changes Diagnostic Imaging Comments CXR--NO ACUTE PROCESS, PENDING RADIOLOGIST REVIEW Reviewed: Reviewed by Me Departure Impression Primary Impression: Left against medical advice Disposition: 07 AGAINST MEDICAL ADVICE Condition: Against Medical Advice Departure-Patient Inst. Referrals: NO,LOCAL PHYSICIAN (PCP/Family) Primary Care Physician JON CLINE DO Dec 06, 2021 00:07
[2021-12-06 00:12] LABS: AMPHETAMINE SCREEN, URINE NEGATIVE (NEGATIVE); BARBITURATE SCREEN URINE NEGATIVE (NEGATIVE); BENZODIAZEPINES SCREEN URINE NEGATIVE (NEGATIVE); CANNABINOID SCREEN, URINE POSITIVE (NEGATIVE); COCAINE SCREEN URINE NEGATIVE (NEGATIVE); METHADONE STAT NEGATIVE (NEGATIVE); OPIATE SCREEN URINE NEGATIVE (NEGATIVE); OXYCODONE STAT NEGATIVE (NEGATIVE); PROPOXYPHENE STAT NEGATIVE (NEGATIVE); TRICYCLIC ANTIDEPRESSANTS SCRE NEGATIVE (NEGATIVE)
[2021-12-06 00:37] VITALS: BP 177/98
--- NOTE | 2021-12-06 07:50 | Diagnostic Imaging Report ---
EXAM: CHEST 1 VIEW, AP/PA ONLY INDICATION: Chest pain. COMPARISON: 10/26/2021. FINDINGS: Normal heart size and pulmonary vascularity. No dense consolidation, pleural effusion or pneumothorax. No acute osseous findings. IMPRESSION: Negative chest. Dictated by: Dictated on workstation # [id number]
== END 2021-12-06 00:37 | disposition left against medical advice (07) ==
LOC: EDUNIT# 23:08 → ER 23:10
DX: R07.89 Other chest pain (principal); F17.210 Nicotine dependence, cigarettes, uncomplicated; Z86.16 Personal history of COVID-19; Z28.310 Unvaccinated for COVID-19
CPT/HCPCS: 36415; 71045; 80053; 80306; 80320; 81000; 82150; 82550; 82553; 83690; 83735; 83874; 83880; 84484; 85007; 85027; 85379; 85610; 85730; 93005; 93041

== ENCOUNTER 2021-12-06 08:22 | Emergency (ER) | payer MEDICAID ==
[~2021-12-06] VITALS: Ht 195 cm; Wt 68.0 kg
[2021-12-06] MEDS ORDERED: ROCURONIUM 10 MG/ML 5 ML SYRINGE IV ONE (08:24)
[2021-12-06] MEDS ORDERED: ETOMIDATE IV SOLN 20 MG/10 ML VIAL IV ONE (08:24)
[2021-12-06] MEDS ORDERED: EPINEPHrine 0.1 MG/ML 10 ML (HOSPIRA) SYR IJ ONE (08:24)
[2021-12-06 08:25] VITALS: BP 93/75
[2021-12-06] MEDS ORDERED: NS IV 1000 ML 1,000 ML IV SCH (08:30)
--- NOTE | 2021-12-06 08:46 | ED General ---
General Chief Complaint: Dizziness/Syncope Stated Complaint: SYNCOPY Source of Information: Patient, Family (fiance) Exam Limitations: No Limitations History of Present Illness Date Seen by Provider: Dec 06, 2021 Time Seen by Provider: 08:30 Initial Comments Patient is a 31-year-old male with negative past medical history who works as a long-distance milk receiver tank truck recently had COVID in mid October of this year presents to the emergency department by ambulance after syncopal event at home. Patient was in the emergency department early this morning around midnight with chief complaint of chest pain epigastric pain radiating to his back. Lab work and imaging were initiated however the patient left AMA prior to CT angiography of his chest to rule out pulmonary embolism. Patient had a significantly elevated D-dimer at 8.6. He was at home this morning with his fiance, on the toilet and had a syncopal event. She states he was unresponsive for a few minutes or poorly responsive. He is continuing to complain of epigastric pain and nausea. Denies passing black or bloody stool, no blood in his urine. No recent productive cough. No headache. He does have generalized fatigue and malaise. He is awake alert and oriented. Heart rate is in the 130s, this morning he was in the 50s. Oxygen saturations on room air 100%. He did have a chest x-ray earlier this morning which was read by the radiologist as clear. Blood pressure per EMS report was 78 systolic currently in the low 90s. He is quite thin and does not take blood pressure medications. 90s to 100s systolic is probably good for him. He is hyperglycemic on arrival with a blood sugar at bedside of 330. No history of diabetes. His states that when he had COVID a month ago he was "down" for an entire week. The COVID "hit him hard". All other review of systems reviewed and negative except as stated Timing/Duration: 1-2 Days Severity: Severe Associated Systoms: Malaise, Nausea/Vomiting, Syncope, Weakness Allergies and Home Medications Allergies Coded Allergies: No Known Drug Allergies (Unverified , 10/23/21) Patient Home Medication List Home Medication List Reviewed: Yes Review of Systems Review of Systems Constitutional: see HPI EENTM: no symptoms reported Respiratory: short of breath Cardiovascular: chest pain (epigastric pain) Gastrointestinal: abdominal pain, nausea Genitourinary: no symptoms reported Musculoskeletal: no symptoms reported Skin: no symptoms reported Psychiatric/Neurological: No Symptoms Reported All Other Systems Reviewed Negative Unless Noted: Yes Past Pzhgldo-Sltbxa-Dytlql Hx Past Medical History Surgery/Hospitalization HX: PT DENIES PMH OR SURGERIES. Surgeries: No Respiratory: No Cardiac: No Neurological: No Genitourinary: No Gastrointestinal: No Musculoskeletal: No Endocrine: No HEENT: No Cancer: No Psychosocial: No Integumentary: No Blood Disorders: No Family Medical History COVID + 10/26/21--NO TREATMENT Physical Exam Vital Signs Vital Signs - First Documented 12/06/21 08:25 Temp 36.6 Pulse 138 Resp 22 B/P (MAP) 93/75 (81) Pulse Ox 100 O2 Delivery Room Air Capillary Refill : Height, Weight, BMI Height: '" Weight: lbs. oz. kg; BMI Method: General Appearance: No Apparent Distress, Other (pale, thin and appears unwell) Eyes: Bilateral Eye Normal Inspection, Bilateral Eye PERRL, Bilateral Eye EOMI HEENT: PERRL/EOMI Neck: Normal Inspection Respiratory: Lungs Clear, Normal Breath Sounds, No Accessory Muscle Use, No Respiratory Distress Cardiovascular: Regular Rate, Rhythm, Normal Peripheral Pulses (2+ radial puls es bilaterally), Tachycardia (140) Gastrointestinal: Soft, Other (thin) Extremity: Normal Capillary Refill, Normal Inspection, Normal Range of Motion, Non Tender, No Calf Tenderness Neurologic/Psychiatric: Alert, Oriented x3, No Motor/Sensory Deficits, Depressed Affect Skin: Warm/Dry, Pallor, Other (scattered abrasions and ecchymoses over his lower legs and right thigh (from work per fiance)) Progress/Results/Core Measures Suspected Sepsis SIRS Temperature: Pulse: Respiratory Rate: Laboratory Tests 12/06/21 08:56: White Blood Count 35.6*H Blood Pressure / Mean: Laboratory Tests 12/06/21 08:56: Creatinine 1.84H, Platelet Count 290 Results/Orders Lab Results Laboratory Tests Test 12/06/21 08:36 12/06/21 08:56 12/06/21 09:08 Range/Units Glucometer 313 H 70-110 MG/DL White Blood Count 35.6 *H 4.3-11.0 10^3/uL Red Blood Count 2.82 L 4.30-5.52 10^6/uL Hemoglobin 9.1 #L 13.3-17.7 g/dL Hematocrit 28 L 40-54 % Mean Corpuscular Volume 100 H 80-99 fL Mean Corpuscular Hemoglobin 32 25-34 pg Mean Corpuscular Hemoglobin Concent 32 32-36 g/dL Red Cell Distribution Width 12.5 10.0-14.5 % Platelet Count 290 130-400 10^3/uL Mean Platelet Volume 10.5 9.0-12.2 fL Immature Granulocyte % (Auto) 2 % Neutrophils (%) (Auto) 90 H 42-75 % Lymphocytes (%) (Auto) 4 L 12-44 % Monocytes (%) (Auto) 4 0-12 % Eosinophils (%) (Auto) 0 0-10 % Basophils (%) (Auto) 0 0-10 % Neutrophils # (Auto) 32.2 H 1.8-7.8 10^3/uL Lymphocytes # (Auto) 1.2 1.0-4.0 10^3/uL Monocytes # (Auto) 1.5 H 0.0-1.0 10^3/uL Eosinophils # (Auto) 0.0 0.0-0.3 10^3/uL Basophils # (Auto) 0.1 0.0-0.1 10^3/uL Immature Granulocyte # (Auto) 0.6 H 0.0-0.1 10^3/uL Neutrophils % (Manual) 86 % Lymphocytes % (Manual) 5 % Monocytes % (Manual) 6 % Eosinophils % (Manual) 0 % Basophils % (Manual) 0 % Band Neutrophils 3 % Blood Morphology Comment NORMAL Sodium Level 138 135-145 MMOL/L Potassium Level 4.1 3.6-5.0 MMOL/L Chloride Level 100 98-107 MMOL/L Carbon Dioxide Level 18 L 21-32 MMOL/L Anion Gap 20 H 5-14 MMOL/L Blood Urea Nitrogen 17 7-18 MG/DL Creatinine 1.84 H 0.60-1.30 MG/DL Estimat Glomerular Filtration Rate 49 BUN/Creatinine Ratio 9 Glucose Level 367 H 70-105 MG/DL Calcium Level 8.7 8.5-10.1 MG/DL Beta-Hydroxybutyrate (Chem panel) 0.15 0.00-0.27 MMOL/L Blood Gas Puncture Site RT RAD Blood Gas Patient Temperature 36.6 Arterial Blood pH 7.35 L 7.37-7.43 Arterial Blood Partial Pressure CO2 35 35-45 MMHG Arterial Blood Partial Pressure O2 68 L 79-93 MMHG Arterial Blood HCO3 19 L 23-27 MMOL/L Arterial Blood Total CO2 19.8 L 21.0-31.0 MMOL/L Arterial Blood Oxygen Saturation 96 94-100 % Arterial Blood Base Excess -5.9 L -2.5-2.5 MMOL/L Javi Test NA Blood Gas Ventilator Setting NO Blood Gas Inspired Oxygen ROOM AIR My Orders Orders - PAULA LYNN MD Ed Iv/Invasive Line Start (12/06/21 08:29) Cbc With Automated Diff (12/06/21 08:29) Basic Metabolic Panel (12/06/21 08:29) Ns Iv 1000 Ml (Sodium Chloride 0.9%) (12/06/21 08:30) Beta Hydroxybutyrate (12/06/21 08:40) Arterial Blood Gas (12/06/21 08:40) Iohexol Injection (Omnipaque 350 Mg/Ml 1 (12/06/21 09:00) Received Contrast (Hold Metformin- Contr (12/06/21 09:00) Sodium Chloride Flush (Catheter Flush Sy (12/06/21 09:00) Ns (Ivpb) (Sodium Chloride 0.9% Ivpb Bag (12/06/21 09:00) Ct Angio Chest/Abd W (12/06/21 ) Type And Screen (12/06/21 09:23) Manual Differential (12/06/21 08:56) Etomidate Injection (Amidate Injection) (12/06/21 08:24) Rocuronium 5 Ml Syringe (Rocuronium 5 Ml (12/06/21 08:24) Epinephrine Emergency Syringe (Epinephr (12/06/21 08:24) Medications Given in ED Vital Signs/I&O 12/06/21 08:25 Temp 36.6 Pulse 138 Resp 22 B/P (MAP) 93/75 (81) Pulse Ox 100 O2 Delivery Room Air Capillary Refill : Progress Note : Time: 13:15 Progress Note @1909 the radiologist walked over from the radiology department to give me CT results in person on Mr. Ross. He advised me that he had an acute aortic dissection both ascending and descending with a significant hemothorax on the left. I immediately started calling for helicopter/EMS transport and calling local facilities as at that point in time to my knowledge the patient had still a stable blood pressure. I called [facility] in [facility], cardiothoracic surgeon Dr. Cho was going to be unavailable as he was in a heart surgery that was lasting 6 to 8 hours. I then contacted [facility] Dr. Schneider and started giving him report. As I was talking to him I walked into the room to assess Vanessa. He was now hypotensive in the 60s and 70s and had decreasing mentation. Heart rate remained in the 130s. Poor respiratory effort. Staff began mobilizing intubation equipment, RT was called. Minutes after my arrival into the room Vanessa stopped breathing. CPR was immediately started 0936. We obtained spontaneous pulse about 5 minutes later. Medications for RSI were given etomidate 20 mg rocuronium 50 mg. Using glide scope and a 7.5 ET tube was placed with positive visualization of the cords, positive breath sounds greater on the right, positive color change on CO2 detector. It was secured at 23 cm at the lip. At 0 944 no detectable pulse again. He had fluids and blood wide open. Several rounds of epinephrine were subsequently given. Intermittently we would regain spontaneous circulation. Chest tube started at 09 58. He immediately had 2000 mL of blood in the chamber. 1002 pulse was present. At this point in time I talked again to [facility] in [place], they declined due to unavailability of more than 1 surgeon and the complexity of the case. His pulse was lost again shortly after this phone call. I spoke with his fiance who was at the bedside, her mother was also present. I advised them that due to the severity of this process and lack of immediate specialty services and lack of immediate availabi lity of transport, knowing that this is most often a fatal condition that he would from this process. Family was understandably distraught. I went back into the room at approximately 1010 CPR in progress. At this time due to medical futility we called the code. Time of 1013. Art Display Maker was notified. Grady and her mother were notified. Claims Supervisor was with family. Diagnostic Imaging Diagonstic Imaging: CT Comments [facility], [place] NAME: VANESSA CHEUNG MED REC#: [id number] PT STATUS: REG ER : 1990 PHYSICIAN: PAULA LYNN MD ADMIT DATE: 12/06/21/ER Signed Date of Exam:12/06/21 CT ANGIO CHEST/ABD W PROCEDURE: CT angiography of the abdomen and chest with and without contrast. TECHNIQUE: After intravenous administration of contrast, thin section axial CT angiography of the abdomen and chest were obtained. 3D MIP reformats were provided. Auto Exposure Controls were utilized during the CT exam to meet ALARA standards for radiation dose reduction. INDICATION: Chest pain. Elevated D-dimer. Syncopal episode. Abdominal pain. COMPARISON: 10/26/2021. CTA chest: Dissection of the thoracic and abdominal aorta is seen involving both the ascending and descending thoracic aorta. There is a focal outpouching of the proximal descending thoracic aorta off the false lumen measuring 1.9 cm at its neck. Associated acute hemorrhage is seen within the left thoracic cavity with large left-sided hemothorax. The heart size is within normal limits. No pericardial effusion is present. There is no mediastinal, hilar, or axillary lymphadenopathy. Consolidative opacities are seen in the dependent left lung. The right lung is clear. No central endobronchial obstructing lesions. No pneumothorax. No acute osseous abnormalities. CTA abdomen: There is hypoperfusion to the left kidney as the left renal artery is off the false lumen of the abdominal aorta. The right kidney is unremarkable. The liver, spleen, pancreas, and adrenal glands have a normal appearance. There is no pathologically enlarged mesenteric or retroperitoneal adenopathy. The included bowel loops are nondilated. There is no free fluid or free air. The osseous structures are age-appropriate. IMPRESSION: 1. 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 2. 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 3. Hypoperfusion of the left kidney due to the left renal artery originating from the false lumen of the abdominal aorta. Findings were given to the emergency room physician by Dr. Tripp Rivers at 9:35 AM on 12/06/2021. Dictated by: Dictated on workstation # [id number] Dict: 12/06/2127 Trans: 12/06/21 1010 [place] [id number] Interpreted by: SAM DAUGHERTY DO Electronically signed by: SAM DAUGHERTY DO 12/06/21 1010 Departure Impression Primary Impression: Aortic dissection, thoracoabdominal Disposition: 20 Condition: Departure-Patient Inst. Referrals: NO,LOCAL PHYSICIAN (PCP/Family) Primary Care Physician PAULA LYNN MD Dec 06, 2021 08:45
[2021-12-06] MEDS ORDERED: IOHEXOL 350 MG/ML 100 ML (OMNIPAQUE 350) VIAL IV ONE (09:00)
[2021-12-06] MEDS ORDERED: CATHETER FLUSH 10 ML SYR IV PRN (09:00)
[2021-12-06] MEDS ORDERED: NS 100 ML (IVPB) BAG IV ONE (09:00)
[2021-12-06] MEDS ORDERED: HOLD METFORMIN - RECEIVED CONTRAST 20 ML VIAL IV SCH (09:00)
[2021-12-06 09:13] LABS: BASOPHILS # (AUTO) 0.1 10^3/uL (0.0-0.1); BASOPHILS % (AUTO) 0 % (0-10); EOSINOPHILS % (AUTO) 0 % (0-10); HEMATOCRIT 28 % (40-54); HEMOGLOBIN 9.1 g/dL (13.3-17.7); LYMPHOCYTES # (AUTO) 1.2 10^3/uL (1.0-4.0); LYMPHOCYTES % (AUTO) 4 % (12-44); MEAN CORPUSCULAR HEMOGLOBIN 32 pg (25-34); MEAN CORPUSCULAR HGB CONC 32 g/dL (32-36); MEAN CORPUSCULAR VOLUME 100 fL (80-99); MEAN PLATELET VOLUME 10.5 fL (9.0-12.2); MONOCYTES # (AUTO) 1.5 10^3/uL (0.0-1.0); MONOCYTES % (AUTO) 4 % (0-12); NEUTROPHILS # (AUTO) 32.2 10^3/uL (1.8-7.8); NEUTROPHILS % (AUTO) 90 % (42-75); PLATELET COUNT 290 10^3/uL (130-400)
[2021-12-06 09:15] LABS: ABG BASE EXCESS -5.9 MMOL/L (-2.5-2.5); ABG OXYGEN SATURATION 96 % (94-100); ABG PCO2 35 MMHG (35-45); ABG PH 7.35 (7.37-7.43); ABG PO2 68 MMHG (79-93); ABG TCO2 19.8 MMOL/L (21.0-31.0)
[2021-12-06 09:16] LABS: INSPIRED O2 ROOM AIR; PATIENT TEMP 36.6; VENTILATOR NO
[2021-12-06 09:18] LABS: WHITE BLOOD COUNT 35.6 10^3/uL (4.3-11.0)
[2021-12-06 09:24] LABS: POTASSIUM 4.1 MMOL/L (3.6-5.0)
[2021-12-06 09:25] LABS: CALCIUM 8.7 MG/DL (8.5-10.1)
[2021-12-06 09:29] LABS: CREATININE SERUM 1.84 MG/DL (0.60-1.30)
--- NOTE | 2021-12-06 10:04 | Diagnostic Imaging Report ---
PROCEDURE: CT angiography of the abdomen and chest with and without contrast. TECHNIQUE: After intravenous administration of contrast, thin section axial CT angiography of the abdomen and chest were obtained. 3D MIP reformats were provided. Auto Exposure Controls were utilized during the CT exam to meet ALARA standards for radiation dose reduction. INDICATION: Chest pain. Elevated D-dimer. Syncopal episode. Abdominal pain. COMPARISON: 10/26/2021. CTA chest: Dissection of the thoracic and abdominal aorta is seen involving both the ascending and descending thoracic aorta. There is a focal outpouching of the proximal descending thoracic aorta off the false lumen measuring 1.9 cm at its neck. Associated acute hemorrhage is seen within the left thoracic cavity with large left-sided hemothorax. The heart size is within normal limits. No pericardial effusion is present. There is no mediastinal, hilar, or axillary lymphadenopathy. Consolidative opacities are seen in the dependent left lung. The right lung is clear. No central endobronchial obstructing lesions. No pneumothorax. No acute osseous abnormalities. CTA abdomen: There is hypoperfusion to the left kidney as the left renal artery is off the false lumen of the abdominal aorta. The right kidney is unremarkable. The liver, spleen, pancreas, and adrenal glands have a normal appearance. There is no pathologically enlarged mesenteric or retroperitoneal adenopathy. The included bowel loops are nondilated. There is no free fluid or free air. The osseous structures are age-appropriate. IMPRESSION: 1. 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 2. 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 3. Hypoperfusion of the left kidney due to the left renal artery originating from the false lumen of the abdominal aorta. Findings were given to the emergency room physician by Dr. Tripp Rivers at 9:35 AM on 12/06/2021. Dictated by: Dictated on workstation # [id number]
[2021-12-06 10:09] LABS: BAND NEUTROPHILS 3 %; BASOPHILS % (MANUAL) 0 %; EOSINOPHILS % (MANUAL) 0 %; LYMPHOCYTES % (MANUAL) 5 %; MONOCYTES % (MANUAL) 6 %; NEUTROPHILS % (MANUAL) 86 %; RBC MORPH NORMAL
== END 2021-12-06 10:14 | disposition expired ==
LOC: EDUNIT# 08:22 → ER 08:23
DX: I71.03 Dissection of thoracoabdominal aorta (principal); S70.11XA Contusion of right thigh, initial encounter; S80.12XA Contusion of left lower leg, initial encounter; I95.9 Hypotension, unspecified; Z86.16 Personal history of COVID-19; X58.XXXA Exposure to other specified factors, initial encounter; Y92.002 Bathroom of unspecified non-institutional (private) residence as the place of occurrence of the external cause
CPT/HCPCS: 31500; 32551; 36415; 71275; 74175; 80048; 82010; 82805; 82947; 85007; 85027; 86850; 86900; 86901; 86920; 99291